=== PATIENT | male | born 1995 | race Caucasian/White ===

== ENCOUNTER 2018-03-31 10:12 | Day surgery (SDC) | payer BC ==
[2018-03-25 16:29] VITALS: BMI 31.2
[2018-03-31] MEDS ORDERED: Sodium Chloride 0.9% 100 ML ONE (10:27)
[2018-03-31] MEDS ORDERED: cefOXitin 2 GM VIAL ONE (10:27)
[2018-03-31] MEDS ORDERED: Lidocaine 2% Jelly 5 ML TUBE ONE (10:30)
[2018-03-31] MEDS ORDERED: Bupivacaine/Epinephrine 0.25% 30 ML VIAL ONE (10:30)
[2018-03-31] MEDS ORDERED: Midazolam HCl 2 mg/2 ml Vial ONE (10:37)
[2018-03-31] MEDS ORDERED: Fentanyl 250 MCG/5 ML VIAL ONE (10:37)
[2018-03-31] MEDS ORDERED: Fentanyl 100 MCG/2 ML VIAL ONE ×3 (12:22→13:25)
[2018-03-31] MEDS ORDERED: Morphine 4 MG/ML VIAL ONE (12:53)
[2018-03-31] MEDS ORDERED: Ketorolac Tromethamine 30 MG/ML VIAL ONE (13:09)
[2018-03-31] MEDS ORDERED: HYDROcodone/Acetaminophen 5/325 mg Tablet ONE (13:51)
[2018-03-31] MEDS ORDERED: Ondansetron HCl/PF 4 MG/2 ML Vial ONE (14:46)
[2018-03-31] MEDS ORDERED: PROPOFOL 200 MG/20 ML VIAL ONE (14:46)
[2018-03-31] MEDS ORDERED: Glycopyrrolate 0.2 MG/ML 5 ML SYRINGE ONE (14:46)
[2018-03-31] MEDS ORDERED: Dexamethasone 20 MG/5 ML VIAL ONE (14:46)
[2018-03-31] MEDS ORDERED: Lidocaine 1% PF 5 ML VIAL ONE (14:46)
--- NOTE | 2018-04-01 15:30 | OP ---
DATE OF PROCEDURE: 03/31/2018 PREOPERATIVE DIAGNOSIS: Prolapsing internal hemorrhoids. POSTOPERATIVE DIAGNOSIS: Prolapsing internal hemorrhoids. PROCEDURE: PPH stapled hemorrhoidectomy. SURGEON: Best Pavon M.D. ANESTHESIA: General. ESTIMATED BLOOD LOSS: Minimal. COMPLICATIONS: None. SPECIMEN: Hemorrhoids. TECHNIQUE: The patient was taken to the operating room and placed supine on the table. After genera l anesthetic was obtained, he was placed in prone position. His buttocks were taped open. His peria nal region was prepped and draped in a sterile fashion. Anal exam revealed no obvious anal canal mas s. There were internal hemorrhoids. The PPH staple obturator and sphincter protector was placed and sewn to the perianal skin using a silk suture. A pursestring of Prolene was then placed 2 cm above the dentate line. The PPH stapler was opened to its fullest extent, the anvil placed above this purs estring and the pursestring tied down loosely. The ends of the suture then pulled through the staple r and held tension. The stapler was then tightened down into the green zone, pulling the prolapsing hemorrhoids into the stapler. The stapler is fired and held for 90 seconds, it was then opened and r emoved. A few bleeders on the staple line were oversewn using Vicryl suture. Gelfoam and lidocaine jelly is packed in the anal canal. The patient was en route to recovery in stable condition. All in strument counts, needle counts, lap counts were correct.
== END 2018-03-31 18:40 | disposition home or self-care (01) ==
LOC: SDC 10:12
PROVIDERS: ATTEND Surgery
PROC: 06BY0ZC Excision of Hemorrhoidal Plexus, Open Approach (ICD-10-PCS; principal; 2018-03-31)
DX: K64.8 Other hemorrhoids (principal); Z79.51 Long term (current) use of inhaled steroids
CPT/HCPCS: 88304; 96374; 96375; J0131; J0694; J1100; J1885; J2001; J2250; J2270; J2405; J2704; J3010; J7050